=== PATIENT | female | born 1970 | race Caucasian/White ===

== ENCOUNTER 2018-02-11 10:08 | Emergency (ER) | payer MEDICAID ==
[2018-02-11] MEDS: KETOROLAC 30 MG INJ IM (11:04)
== END 2018-02-11 11:16 | disposition home or self-care (01) ==
LOC: FTE 10:08
DX: K11.20 Sialoadenitis, unspecified (principal); K12.0 Recurrent oral aphthae
CPT/HCPCS: 81025; 96372; 99284-25